=== PATIENT | male | born 1990 | race Two or more races ===

== ENCOUNTER 2022-11-06 15:59 | Emergency (ER) | payer SELFPAY ==
[~2022-11-06] VITALS: Ht 175.3 cm; Wt 6.8 kg
[2022-11-06 20:45] VITALS: BP 109/50
== END 2022-11-06 20:48 | disposition home or self-care (01) ==
LOC: ER 15:59
DX: R07.89 Other chest pain (principal)
CPT/HCPCS: 71046; 93005